=== PATIENT | male | born 2000 | race Caucasian/White ===

== ENCOUNTER → 2021-02-08 15:30 | Outpatient (CLI) | payer OTHER, SELFPAY ==
[2021-02-08] MEDS: COVID-19 VACC, Ad26(JANSSEN)/PF 0.5 ML IM (15:38)
== END ==
PROVIDERS: Visit Provider Internal Medicine
DX: Z23 Encounter for immunization (principal)
CPT/HCPCS: 0031A; 91303

== ENCOUNTER → 2021-03-20 16:10 | Outpatient (CLI) | payer OTHER, SELFPAY ==
[2021-03-20 16:57] LABS: Add Manual Diff / Slide Review NO; Basophils Absolute Auto 100 /uL (0-100); Basophils Percent Auto 1.8 % (0-2); Eosinophils Absolute Auto 100 /uL (0-450); Eosinophils Percent Auto 1.4 % (2-4); Hematocrit 45.9 % (41-53); Hemoglobin 16.3 g/dL (13.5-17.5); Lymphocytes Absolute Auto 1700 /uL (1100-4500); Lymphocytes Percent Auto 38.7 % (25-40); Mean Corpuscular HGB Conc 35.4 % (30-36); Mean Corpuscular Hemoglobin 30.8 PG (26-34); Mean Corpuscular Volume 86.9 fL (80-100); Monocytes Absolute Auto 500 /uL (0-900); Monocytes Percent Auto 10.8 % (3-14); Neutrophils Absolute Auto 2100 /uL (1500-7000); Neutrophils Percent Auto 47.3 % (50-75); Platelet Count 193 X10^3/uL (150-400); Red Blood Cell Count 5.28 X10^6/uL (4.5-5.9); Red Cell Distribution Width 13.1 % (11.6-14.8); White Blood Cell Count 4.3 X10^3/uL (4.5-11.0)
[2021-03-20 17:19] LABS: Alanine Aminotransferase 19 IU/L (<50); Albumin 4.9 g/dL (3.5-5.0); Albumin Globulin Ratio 1.6 (1.0-2.8); Alkaline Phosphatase 64 U/L (38-126); Aspartate Aminotransferase 32 IU/L (17-59); BUN Creatinine Ratio 15.4 (6-22); Bilirubin Total 0.9 mg/dL (0.2-1.3); Blood Urea Nitrogen 12 mg/dL (9-20); C-Reactive Protein Quant < 0.5 mg/dL (<1.0); Calcium 9.7 mg/dL (8.4-10.2); Carbon Dioxide 28 mmol/L (22-32); Chloride 103 mmol/L (98-107); Estimated Glomerular Filt Rate > 60.0 mL/min (>60); Glucose 93 mg/dL (70-100); HEMOLYSIS 19 (0-50); Potassium 4.4 mmol/L (3.4-5.1); Sodium 138 mmol/L (137-145); Total Protein 7.9 g/dL (6.3-8.2)
[2021-03-20 17:35] LABS: Erythrocyte Sedimentation Rate 1 MM/HR (0-15)
[2021-03-27 15:11] LABS: HLA B27 Negative (.)
== END ==
PROVIDERS: Referring Provider Internal Medicine Rheumatology; Visit Provider Internal Medicine Rheumatology
DX: Z79.899 Other long term (current) drug therapy (principal); L40.59 Other psoriatic arthropathy
CPT/HCPCS: 36415; 80053; 81374; 85025; 85651; 86140

== ENCOUNTER → 2021-04-12 14:35 | Outpatient (CLI) | payer OTHER, SELFPAY ==
[2021-04-13 06:38] LABS: Hepatitis B Surf AB Quant <3.1 mIU/mL (Immunity>9.9)
[2021-04-15 17:14] LABS: Hep C Virus Ab w/Reflex Quant NEGATIVE s/c (NEGATIVE)
[2021-04-16 23:09] LABS: QuantiFERON Mitogen Value >10.00 IU/mL (.); QuantiFERON Nil Value <0.00 IU/mL (.); QuantiFERON TB Gold Plus Negative (Negative); QuantiFERON TB1 Ag Value <0.00 IU/mL (.); QuantiFERON TB2 Ag Value <0.00 IU/mL (.)
== END ==
PROVIDERS: Referring Provider Internal Medicine Rheumatology; Visit Provider Internal Medicine Rheumatology
DX: L40.59 Other psoriatic arthropathy (principal); Z79.899 Other long term (current) drug therapy
CPT/HCPCS: 36415; 86480; 86706; 86803

== ENCOUNTER → 2022-01-25 14:03 | Outpatient (CLI) | payer OTHER, SELFPAY ==
--- NOTE | 2022-01-25 14:06 | DI.RAD.S_ITS ---
PROCEDURE: XR SHOULDER LT MIN 2V INDICATIONS: SHOULDER PAIN TECHNIQUE: 3 views of the shoulder were acquired. COMPARISON: None. FINDINGS: Bones: No fractures or dislocations. No suspicious bony lesions. Visualized ribs appear intact. Soft tissues: No suspicious soft tissue calcifications. The visualized lung demonstrates an unremarkable appearance. IMPRESSION: Normal shoulder plain films. If it would be helpful for clinical management decision making, please consider a dedicated, scheduled shoulder MRI for further evaluation (assuming that there is no contraindication). Dictated by: Da Saldivar M.D. on 01/25/2022 at 14:32 Approved by: Da Saldivar M.D. on 01/25/2022 at 14:33
== END ==
PROVIDERS: PCP Internal Medicine; Referring Provider Internal Medicine; Visit Provider Internal Medicine
DX: M25.512 Pain in left shoulder (principal); G89.29 Other chronic pain
CPT/HCPCS: 73030

== ENCOUNTER → 2022-05-29 13:57 | Outpatient (CLI) | payer OTHER, SELFPAY ==
[2022-05-29 14:31] LABS: Add Manual Diff / Slide Review NO; Basophils Absolute Auto 100 /uL (0-100); Basophils Percent Auto 3.6 % (0-2); Eosinophils Absolute Auto 100 /uL (0-450); Hematocrit 44.5 % (41-53); Hemoglobin 16.5 g/dL (13.5-17.5); Lymphocytes Absolute Auto 1500 /uL (1100-4500); Lymphocytes Percent Auto 35.6 % (25-40); Mean Corpuscular HGB Conc 37.1 % (30-36); Mean Corpuscular Hemoglobin 31.8 PG (26-34); Mean Corpuscular Volume 85.5 fL (80-100); Monocytes Absolute Auto 400 /uL (0-900); Monocytes Percent Auto 8.9 % (3-14); Neutrophils Absolute Auto 2100 /uL (1500-7000); Neutrophils Percent Auto 49.9 % (50-75); Platelet Count 173 X10^3/uL (150-400); Red Blood Cell Count 5.21 X10^6/uL (4.5-5.9); Red Cell Distribution Width 13.1 % (11.6-14.8); White Blood Cell Count 4.1 X10^3/uL (4.5-11.0)
[2022-05-29 14:57] LABS: Alanine Aminotransferase 60 IU/L (<50); Albumin 4.8 g/dL (3.5-5.0); Albumin Globulin Ratio 1.9 (1.0-2.8); Alkaline Phosphatase 51 U/L (38-126); Aspartate Aminotransferase 41 IU/L (17-59); BUN Creatinine Ratio 13.9 (6-22); Bilirubin Total 1.3 mg/dL (0.2-1.3); Blood Urea Nitrogen 11 mg/dL (9-20); Calcium 9.1 mg/dL (8.4-10.2); Carbon Dioxide 27 mmol/L (22-32); Chloride 105 mmol/L (98-107); Estimated Glomerular Filt Rate > 60 mL/min (>60); Globulin 2.5 g/dL (1.7-4.1); Glucose 117 mg/dL (70-100); HEMOLYSIS < 15 (0-50); Potassium 3.7 mmol/L (3.4-5.1); Sodium 139 mmol/L (137-145); Total Protein 7.3 g/dL (6.3-8.2)
== END ==
PROVIDERS: PCP Internal Medicine; Referring Provider Internal Medicine Rheumatology; Visit Provider Internal Medicine Rheumatology
DX: L40.59 Other psoriatic arthropathy (principal); Z79.899 Other long term (current) drug therapy
CPT/HCPCS: 36415; 80053; 85025

== ENCOUNTER → 2024-06-15 14:28 | Outpatient (CLI) | payer OTHER, SELFPAY ==
[2024-06-15 15:35] LABS: Alanine Aminotransferase 21 IU/L (<50); Albumin 4.9 g/dL (3.5-5.0); Alkaline Phosphatase 52 U/L (38-126); Aspartate Aminotransferase 26 IU/L (17-59); BUN Creatinine Ratio 14.5 (6-22); Bilirubin Total 1.1 mg/dL (0.2-1.3); Blood Urea Nitrogen 12 mg/dL (9-20); Calcium 9.7 mg/dL (8.4-10.2); Carbon Dioxide 28 mmol/L (22-32); Chloride 104 mmol/L (98-107); Estimated Glomerular Filt Rate > 60 mL/min (>60); Globulin 2.5 g/dL (1.7-4.1); Glucose 79 mg/dL (70-100); HEMOLYSIS < 15 (0-50); Sodium 141 mmol/L (137-145); Total Protein 7.4 g/dL (6.3-8.2)
[2024-06-15 15:48] LABS: Add Manual Diff / Slide Review NO; Basophils Absolute Auto 100 /uL (0-100); Eosinophils Absolute Auto 100 /uL (0-450); Eosinophils Percent Auto 2.5 % (2-4); Hematocrit 46.3 % (41-53); Hemoglobin 16.8 g/dL (13.5-17.5); Lymphocytes Absolute Auto 2100 /uL (1100-4500); Lymphocytes Percent Auto 46.2 % (25-40); Mean Corpuscular HGB Conc 36.4 % (30-36); Mean Corpuscular Hemoglobin 31.5 PG (26-34); Mean Corpuscular Volume 86.5 fL (80-100); Monocytes Absolute Auto 500 /uL (0-900); Monocytes Percent Auto 11.5 % (3-14); Neutrophils Absolute Auto 1700 /uL (1500-7000); Neutrophils Percent Auto 37.8 % (50-75); Platelet Count 192 X10^3/uL (150-400); Red Blood Cell Count 5.35 X10^6/uL (4.5-5.9); Red Cell Distribution Width 13.3 % (11.6-14.8); White Blood Cell Count 4.4 X10^3/uL (4.5-11.0)
== END ==
PROVIDERS: PCP Internal Medicine; Referring Provider Internal Medicine Rheumatology; Visit Provider Internal Medicine Rheumatology
DX: M45.7 Ankylosing spondylitis of lumbosacral region (principal); Z79.899 Other long term (current) drug therapy; L40.50 Arthropathic psoriasis, unspecified
CPT/HCPCS: 36415; 80053; 85025

== ENCOUNTER → 2024-11-29 12:17 | Outpatient (CLI) | payer OTHER, SELFPAY ==
[2024-11-29 12:56] LABS: Add Manual Diff / Slide Review NO; Basophils Absolute Auto 200 /uL (0-100); Basophils Percent Auto 4.3 % (0-2); Eosinophils Absolute Auto 100 /uL (0-450); Eosinophils Percent Auto 2.2 % (2-4); Hematocrit 47.9 % (41-53); Lymphocytes Absolute Auto 1800 /uL (1100-4500); Lymphocytes Percent Auto 43.2 % (25-40); Mean Corpuscular HGB Conc 35.5 % (30-36); Mean Corpuscular Hemoglobin 31.8 PG (26-34); Mean Corpuscular Volume 89.5 fL (80-100); Monocytes Absolute Auto 400 /uL (0-900); Monocytes Percent Auto 9.7 % (3-14); Neutrophils Absolute Auto 1700 /uL (1500-7000); Neutrophils Percent Auto 40.6 % (50-75); Platelet Count 195 X10^3/uL (150-400); Red Blood Cell Count 5.35 X10^6/uL (4.5-5.9); Red Cell Distribution Width 13.1 % (11.6-14.8); White Blood Cell Count 4.2 X10^3/uL (4.5-11.0)
[2024-11-29 13:17] LABS: Erythrocyte Sedimentation Rate 4 MM/HR (0-15)
[2024-11-29 13:27] LABS: Alanine Aminotransferase 31 IU/L (<50); Albumin 4.9 g/dL (3.5-5.0); Albumin Globulin Ratio 1.8 (1.0-2.8); Alkaline Phosphatase 49 U/L (38-126); Aspartate Aminotransferase 32 IU/L (17-59); BUN Creatinine Ratio 12.9 (6-22); Bilirubin Total 1.1 mg/dL (0.2-1.3); Blood Urea Nitrogen 11 mg/dL (9-20); C-Reactive Protein Quant < 0.5 mg/dL (<1.0); Calcium 9.7 mg/dL (8.4-10.2); Carbon Dioxide 28 mmol/L (22-32); Chloride 103 mmol/L (98-107); Estimated Glomerular Filt Rate > 60 mL/min (>60); Globulin 2.7 g/dL (1.7-4.1); Glucose 66 mg/dL (70-100); HEMOLYSIS < 15 (0-50); Potassium 3.8 mmol/L (3.4-5.1); Sodium 140 mmol/L (137-145); Total Protein 7.6 g/dL (6.3-8.2)
[2024-12-01 12:08] LABS: QuantiFERON Mitogen Value >10.00 IU/mL (.); QuantiFERON Nil Value 0.02 IU/mL (.); QuantiFERON TB Gold Plus Negative (Negative); QuantiFERON TB1 Ag Value 0.02 IU/mL (.); QuantiFERON TB2 Ag Value 0.02 IU/mL (.)
[2024-12-01 15:36] LABS: Hep C Virus Ab w/Reflex Quant NEGATIVE s/c (NEGATIVE)
[2024-12-02 17:08] LABS: Hepatitis B Virus HBV DNA not detected IU/mL (.)
== END ==
PROVIDERS: PCP Internal Medicine; Referring Provider Internal Medicine Rheumatology; Visit Provider Internal Medicine Rheumatology
DX: L40.59 Other psoriatic arthropathy (principal); Z79.899 Other long term (current) drug therapy
CPT/HCPCS: 36415; 80053; 85025; 85651; 86140; 86480; 86803